=== PATIENT | male | born 1940 | race Caucasian/White ===

== ENCOUNTER 2023-08-08 13:56 | Inpatient (IN) | payer MEDICARE, OTHER ==
[2023-08-08] MEDS ORDERED: METOCLOPRAMIDE HCL INJECTION 10 MG/2 ML VIAL IVPB ONE (14:40)
[2023-08-08] MEDS ORDERED: SODIUM CHLORIDE 0.9% 500 ML INFUS.BAG IV ONE (14:40)
[2023-08-08] MEDS ORDERED: ACETAMINOPHEN 1000 MG/100 ML BAG IVPB ONE (14:40)
[2023-08-08] MEDS ORDERED: METOCLOPRAMIDE HCL INJECTION 10 MG/2 ML VIAL ONE (14:51)
[2023-08-08] MEDS ORDERED: ACETAMINOPHEN INJECTION 100 ML IVPB ONE (14:51)
[2023-08-08 15:49] LABS: HEMATOCRIT 40.7 % (35.4-49); MCH 27.7 pg (25.7-33.7); MEAN CELL VOLUME 86.8 fl (80-96); MEAN PLT VOLUME 8.2 fl (7.5-11.1); PLATELET COUNT 196 10^3/uL (134-434); RBC 4.69 M/mm3 (4.00-5.60); RDW 13.8 % (11.9-15.9); WHITE BLOOD COUNT 12.7 K/mm3 (4.0-10.0)
[2023-08-08 16:25] LABS: POTASSIUM 3.4 mmol/L (3.5-5.1)
[2023-08-08 16:27] LABS: CALCIUM 8.8 mg/dL (8.5-10.1)
[2023-08-08 16:28] LABS: ALBUMIN 3.6 g/dl (3.4-5.0); BLOOD UREA NITROGEN 19.2 mg/dL (7-18)
[2023-08-08 16:31] LABS: CREATININE 0.8 mg/dL (0.55-1.3)
[2023-08-08 16:33] LABS: BILIRUBIN,TOTAL 1.5 mg/dL (0.2-1); TOT PROT 7.1 g/dl (6.4-8.2)
[2023-08-08 16:42] LABS: ANISOCYTOSIS 1+; MACROCYTOSIS 0
[2023-08-08] MEDS ORDERED: CEFTRIAXONE 1 GM/50 ML BAG ONE (16:55)
[2023-08-08] MEDS ORDERED: AZITHROMYCIN IVPB 500 MG/250 ML BAG IVPB ONE (16:55)
[2023-08-08] MEDS: AZITHROMYCIN IVPB 500 MG in DEXTROSE 5%-WATER - 250 ML IVPB ONE ×2 (17:37→18:00)
[2023-08-08] MEDS ORDERED: oxyCODONE HCL 5 MG TABLET PO ONE ×2 (18:00→22:15)
[2023-08-08] MEDS ORDERED: oxyCODONE HCL 5 MG TABLET ONE ×2 (18:03→22:42)
[2023-08-08] MEDS ORDERED: KETOROLAC TROMETHAMINE 15 MG/ML VIAL IVPUSH ONE (19:50)
[2023-08-08] MEDS ORDERED: KETOROLAC TROMETHAMINE 15 MG/ML VIAL ONE (19:53)
[2023-08-08 20:20] LABS: MAGNESIUM 2.1 mg/dL (1.8-2.4)
[2023-08-08 20:23] LABS: BILIRUBIN,DIRECT 0.5 mg/dL (0.0-0.2)
[2023-08-08] MEDS ORDERED: POTASSIUM CHLORIDE ORAL LIQUID 20 MEQ/15 ML PO ONE (20:35)
[2023-08-08] MEDS ORDERED: POTASSIUM CHLORIDE ORAL LIQUID 20 MEQ/15 ML ONE (22:02)
[2023-08-09] MEDS: DEXTROSE 5%-0.45% SALINE 1,000 ML IV SCH ×2 (01:17→22:00)
[2023-08-09 03:58] VITALS: BMI 25.9
[2023-08-09] MEDS: oxyCODONE HCL 5 MG TABLET PO PRN ×5 (04:00→23:38)
[2023-08-09 05:43] VITALS: RESP 18
[2023-08-09] MEDS ORDERED: METOCLOPRAMIDE HCL INJECTION 10 MG/2 ML VIAL IVPB ONE (06:45)
[2023-08-09 08:38] LABS: EPI CELLS 3 /uL (0-25.1); HYALINE CASTS 0 /uL (0-3.1); PH,URINE 5.5 (5.0-8.0); URINE APPEARANCE CLEAR; URINE BACTERIA 2 /uL (0-1359); URINE BILIRUBIN 3+ (NEGATIVE); URINE COLOR DK YELLOW; URINE GLUCOSE (UA) 2+ (NEGATIVE); URINE KETONE 1+ (NEGATIVE); URINE LEUK ESTERASE TRACE (NEGATIVE); URINE NITRITE NEGATIVE (NEGATIVE); URINE PROTEIN 1+ (NEGATIVE); URINE RBC 148 /uL (0-23.9); URINE WBC 10 /uL (0-25.8)
[2023-08-09] MEDS: PANTOPRAZOLE 40 MG TABLET PO SCH (09:14)
[2023-08-09] MEDS: HYDROCHLOROTHIAZIDE 12.5 MG CAPSULE (FP) PO SCH (09:14)
[2023-08-09] MEDS: ENOXAPARIN NA (PORCINE) 40 MG/0.4 ML DISP.SYRIN SQ SCH (09:15)
[2023-08-09] MEDS: TAMSULOSIN HCL 0.4 MG CAP PO SCH (09:15)
[2023-08-09] MEDS: CEFTRIAXONE 1 GM in DEXTROSE 5%-WATER - 50 ML IVPB SCH (09:15)
[2023-08-09] MEDS: LOSARTAN POTASSIUM 50 MG TABLET PO SCH (09:15)
[2023-08-09] MEDS ORDERED: PATIENT'S OWN MEDICATION (NON-FORMULARY) (Omeprazole 20 MG Capsule.Dr) PO SCH (10:00)
[2023-08-09] MEDS ORDERED: AZITHROMYCIN IVPB 500 MG/250 ML BAG IVPB SCH (10:00)
[2023-08-09] MEDS ORDERED: PATIENT'S OWN MEDICATION (NON-FORMULARY) (Losartan/Hydrochlorothiazide [Losartan-Hctz 100- PO SCH (10:00)
[2023-08-09] MEDS ORDERED: PATIENT'S OWN MEDICATION (NON-FORMULARY) (Linaclotide [Linzess] 290 MCG Capsule) PO SCH (10:00)
[2023-08-09 10:46] LABS: BASO % 0.1 % (0-2.0); EOS % 0.8 % (0-4.5); HEMATOCRIT 36.9 % (35.4-49); HEMOGLOBIN 11.9 GM/dL (11.7-16.9); LYMPH % 6.1 % (8-40); MCH 27.8 pg (25.7-33.7); MCHC 32.4 g/dl (32.0-35.9); MEAN PLT VOLUME 8.2 fl (7.5-11.1); PLATELET COUNT 173 10^3/uL (134-434); RBC 4.29 M/mm3 (4.00-5.60); RDW 13.5 % (11.9-15.9); WHITE BLOOD COUNT 11.8 K/mm3 (4.0-10.0)
[2023-08-09 11:04] LABS: POTASSIUM 3.4 mmol/L (3.5-5.1)
[2023-08-09 11:31] LABS: CALCIUM 8.5 mg/dL (8.5-10.1)
[2023-08-09 11:32] LABS: BLOOD UREA NITROGEN 13.8 mg/dL (7-18)
[2023-08-09 11:35] LABS: CREATININE 0.7 mg/dL (0.55-1.3)
[2023-08-10] MEDS: DEXTROSE 5%-0.45% SALINE 1,000 ML IV SCH (01:20)
[2023-08-10] MEDS: LOSARTAN POTASSIUM 50 MG TABLET PO SCH (09:05)
[2023-08-10] MEDS: ENOXAPARIN NA (PORCINE) 40 MG/0.4 ML DISP.SYRIN SQ SCH (09:05)
[2023-08-10] MEDS: HYDROCHLOROTHIAZIDE 12.5 MG CAPSULE (FP) PO SCH (09:06)
[2023-08-10] MEDS: CEFTRIAXONE 1 GM in DEXTROSE 5%-WATER - 50 ML IVPB SCH (09:06)
[2023-08-10] MEDS: PANTOPRAZOLE 40 MG TABLET PO SCH (09:06)
[2023-08-10] MEDS: TAMSULOSIN HCL 0.4 MG CAP PO SCH (09:06)
[2023-08-10] MEDS: oxyCODONE HCL 5 MG TABLET PO PRN ×2 (10:51→17:45)
[2023-08-11] MEDS: DEXTROSE 5%-0.45% SALINE 1,000 ML IV SCH ×2 (08:59→22:30)
[2023-08-11] MEDS: TAMSULOSIN HCL 0.4 MG CAP PO SCH (09:00)
[2023-08-11] MEDS: PANTOPRAZOLE 40 MG TABLET PO SCH (09:00)
[2023-08-11] MEDS: HYDROCHLOROTHIAZIDE 12.5 MG CAPSULE (FP) PO SCH (09:00)
[2023-08-11] MEDS: ENOXAPARIN NA (PORCINE) 40 MG/0.4 ML DISP.SYRIN SQ SCH (09:00)
[2023-08-11] MEDS: LOSARTAN POTASSIUM 50 MG TABLET PO SCH (09:00)
[2023-08-11] MEDS: CEFTRIAXONE 1 GM in DEXTROSE 5%-WATER - 50 ML IVPB SCH (09:01)
[2023-08-11] MEDS: oxyCODONE HCL 5 MG TABLET PO PRN ×2 (10:57→21:18)
[2023-08-11] MEDS ORDERED: NORTRIPTYLINE HCL 10 MG CAPSULE PO SCH (22:00)
[2023-08-12] MEDS: ENOXAPARIN NA (PORCINE) 40 MG/0.4 ML DISP.SYRIN SQ SCH (09:37)
[2023-08-12] MEDS: PANTOPRAZOLE 40 MG TABLET PO SCH (09:37)
[2023-08-12] MEDS: TAMSULOSIN HCL 0.4 MG CAP PO SCH (09:37)
[2023-08-12] MEDS: CEFTRIAXONE 1 GM in DEXTROSE 5%-WATER - 50 ML IVPB SCH (09:38)
[2023-08-12] MEDS: LOSARTAN POTASSIUM 50 MG TABLET PO SCH (09:38)
[2023-08-12 09:50] LABS: POTASSIUM 3.4 mmol/L (3.5-5.1)
[2023-08-12 09:51] LABS: CALCIUM 8.4 mg/dL (8.5-10.1)
[2023-08-12 09:52] LABS: BLOOD UREA NITROGEN 13.7 mg/dL (7-18)
[2023-08-12 09:55] LABS: CREATININE 0.9 mg/dL (0.55-1.3)
[2023-08-12] MEDS: oxyCODONE HCL 5 MG TABLET PO PRN (10:01)
[2023-08-12] MEDS: HYDROCHLOROTHIAZIDE 12.5 MG CAPSULE (FP) PO SCH (10:04)
[2023-08-12] MEDS ORDERED: POTASSIUM CHLORIDE TABS 20 MEQ TABLET.ER (FP) PO ONE (12:30)
[2023-08-12 12:50] VITALS: BP 144/74; PULSE 75; TEMP 98.2
== END 2023-08-12 16:42 | disposition home or self-care (01) | DRG 152 ==
LOC: JER 13:56 → JERBED 18:02 → J6S 08-09 02:48 → OBSVTOIN 08-09 15:35
PROVIDERS: ADMIT Internal Medicine; ATTEND Family Medicine
DX: J01.90 Acute sinusitis, unspecified (principal); J18.9 Pneumonia, unspecified organism; K57.92 Diverticulitis of intestine, part unspecified, without perforation or abscess without bleeding; J98.11 Atelectasis; N40.0 Benign prostatic hyperplasia without lower urinary tract symptoms; I10 Essential (primary) hypertension; M54.9 Dorsalgia, unspecified; R51.9 Headache, unspecified
CPT/HCPCS: 0241U-QW; 36415; 70450-TC; 70551-TC; 71045-TC-FY; 74176-TC; 74177-TC; 80048; 80053; 81003; 82248; 83735; 84484; 85025; 85651; 87040; 87899; 93005; 93010; 99285-25; G0378; Q9967